=== PATIENT | male | born 1990 | race African-American/Black ===

== ENCOUNTER 2025-07-27 20:30 | Emergency (ER) | payer MEDICAID ==
[~2025-07-27] VITALS: Ht 177.8 cm; Wt 74.0 kg
[2025-07-27 20:38] VITALS: O2SAT 98
[2025-07-27 21:27] LABS: BASOPHILS % 0.8 % (0.0-2.0); EOSINOPHILS % 4.4 % (0.0-5.0); HEMATOCRIT. 43.8 % (42.0-52.0); HEMOGLOBIN. 14.6 g/dL (14.0-18.0); LYMPHOCYTES % 36.0 % (20.0-50.0); MEAN PLATELET VOLUME 7.9 fl (7.4-10.4); MONOCYTES % 10.9 % (2.0-8.0); NEUTROPHILS % 47.9 % (40.0-76.0); PLATELET 248 x1000/uL (130-400); RED BLOOD CELL COUNT 4.70 mill/uL (4.7-6.1); RED CELL DISTRIBUTION WIDTH 13.2 % (11.6-14.6)
[2025-07-27 21:41] LABS: CREATININE 1.0 mg/dL (0.6-1.3)
[2025-07-27 21:42] LABS: TROPONIN I HIGH SENSITIVITY 4 ng/L (3.0-53); UREA NITROGEN BLOOD 13 mg/dL (9-23)
[2025-07-27 21:43] LABS: ASPARTATE AMINOTRANSFERASE 30 IU/L (<34)
[2025-07-27 21:44] LABS: BILIRUBIN DIRECT 0.2 mg/dL (<=3.0); BILIRUBIN TOTAL 0.7 mg/dL (0.1-1.0); PROTEIN TOTAL 7.0 g/dL (6.0-8.3)
[2025-07-27 22:34] VITALS: BP 128/81; PULSE 71; RESP 21; TEMP 36.6; O2SAT 98
== END 2025-07-27 22:41 | disposition home or self-care (01) ==
LOC: ER 20:30 → CMPBEDREQ 07-28 07:21
DX: R07.9 Chest pain, unspecified (principal); F12.90 Cannabis use, unspecified, uncomplicated; R06.02 Shortness of breath; Z79.899 Other long term (current) drug therapy
CPT/HCPCS: 36415; 71045; 80048; 80076; 83735; 83880; 84484; 85025; 93005; 99285